=== PATIENT | female | born 2000 | race African-American/Black ===

== ENCOUNTER 2019-02-15 18:26 | Emergency (ER) | payer OTHER ==
[~2019-02-15] VITALS: Ht 160 cm; Wt 59.0 kg
[2019-02-15] MEDS ORDERED: NAPROSYN500 MG PO (19:45)
[2019-02-15 20:50] VITALS: BP 122/75
== END 2019-02-15 20:55 | disposition home or self-care (01) ==
LOC: ER 18:26
DX: O36.4XX0 Maternal care for intrauterine death, not applicable or unspecified (principal); Z3A.20 20 weeks gestation of pregnancy